=== PATIENT | male | born 1995 | race Hispanic/Latino ===

== ENCOUNTER 2024-11-16 21:55 | Emergency (ER) | payer SELFPAY ==
[2024-11-16] MEDS ORDERED: Fluorescein Opthalmic Strip ONE (23:25)
[2024-11-16] MEDS ORDERED: Proparacaine 0.5% Opth 15 ML BOT ONE (23:29)
[2024-11-16] MEDS ORDERED: Acetaminophen 500 MG TAB ONE (23:36)
[2024-11-16] MEDS ORDERED: Ibuprofen 200 MG TAB ONE (23:36)
== END 2024-11-17 00:19 | disposition home or self-care (01) ==
LOC: ERS 21:55
DX: H10.9 Unspecified conjunctivitis (principal); Z75.3 Unavailability and inaccessibility of health-care facilities
CPT/HCPCS: 99283